=== PATIENT | male | born 1960 | race Caucasian/White ===

== ENCOUNTER → 2020-10-10 08:19 | Outpatient (BNVA) | payer OTHER, SELFPAY | PROVIDERS: PCP Family Medicine; Referring Provider Family Medicine; Visit Provider Anesthesiology Pain Medicine | DX: M54.41 Lumbago with sciatica, right side (principal); M54.16 Radiculopathy, lumbar region; M47.816 Spondylosis without myelopathy or radiculopathy, lumbar region; R10.2 Pelvic and perineal pain; M53.3 Sacrococcygeal disorders, not elsewhere classified; M46.1 Sacroiliitis, not elsewhere classified; M54.9 Dorsalgia, unspecified; Z79.891 Long term (current) use of opiate analgesic | CPT/HCPCS: 99204; G0260; J1030; J3490 ==

== ENCOUNTER → 2020-10-24 08:19 | Outpatient (BNVA) | payer OTHER, SELFPAY | PROVIDERS: PCP Family Medicine; Visit Provider Anesthesiology Pain Medicine | DX: M79.18 Myalgia, other site (principal); M54.9 Dorsalgia, unspecified; M54.16 Radiculopathy, lumbar region; M47.816 Spondylosis without myelopathy or radiculopathy, lumbar region; M53.3 Sacrococcygeal disorders, not elsewhere classified | CPT/HCPCS: 20553; 99214; J1030; J3490 ==

== ENCOUNTER 2020-11-02 15:23 | Outpatient (CLI) | payer OTHER, SELFPAY ==
--- NOTE | 2020-11-02 16:00 | MR_ITS ---
WS: [id number] MRI LUMBAR SPINE NONCONTRAST HISTORY: M54.16 - Radiculopathy, lumbar region COMPARISON: None available. TECHNIQUE: Sagittal and axial multisequence imaging is submitted. Disc osteophyte contacts the ventral cervical cord at C3-4. Mild straightening of the normal lumbar lordosis. No marrow edema or fracture. Mild disc desiccation L4-5 and L5-S1 without disc space narrowing. Conus terminates normally at L1. L1-L2: Normal. L2-L3: Normal. L3-L4: Very slight annular disc bulging and mild ligamentum flavum and facet arthritis. No disc conta ct on the nurse. L4-L5: Mild diffuse annular disc bulging and mild osteophytic ridging. Multiple annular fissures with in the posterior lateral disc. The disc bulging with small protrusions contacts the L4 nerve roots bi laterally. Only mild bilateral foraminal stenosis. L5-S1: Mild annular disc bulging. Moderate RIGHT foraminal disc protrusion contacting the RIGHT L5 ne rve root displacing the nerve root. There is moderate RIGHT foraminal stenosis. Mild LEFT foraminal s tenosis due to disc bulging. Small amount of fluid in the facet joints. Paravertebral soft tissues are normal. MR/MR lumbar spine wo con* [id number] IMPRESSION: 1. Moderate RIGHT foraminal stenosis at L5-S1 with a RIGHT foraminal disc prot rusion contacting the L5 nerve root. 2. Annular disc bulging at L4-5 with small protrusions and multiple annular fi ssures. Mild disc contact on the L4 nerve roots. Mild foraminal stenosis bilate rally. 3. No central stenosis.
== END 2020-11-02 15:24 | disposition home or self-care (01) ==
LOC: RADSHAW 15:26
PROVIDERS: PCP Family Medicine; Visit Provider Anesthesiology Pain Medicine
DX: M54.16 Radiculopathy, lumbar region (principal); M48.07 Spinal stenosis, lumbosacral region; M51.26 Other intervertebral disc displacement, lumbar region
CPT/HCPCS: 72148

== ENCOUNTER → 2020-11-21 09:14 | Outpatient (BNVA) | payer OTHER, SELFPAY | PROVIDERS: PCP Family Medicine; Visit Provider Anesthesiology Pain Medicine | DX: G89.29 Other chronic pain (principal); M47.816 Spondylosis without myelopathy or radiculopathy, lumbar region; M54.16 Radiculopathy, lumbar region; M54.9 Dorsalgia, unspecified; M53.3 Sacrococcygeal disorders, not elsewhere classified | CPT/HCPCS: 99214 ==

== ENCOUNTER 2020-12-18 11:49 | Outpatient (CLI) | payer OTHER, SELFPAY ==
--- NOTE | 2020-12-18 11:54 | XRR_ITS ---
PROCEDURE INFORMATION: Exam: XR Lumbosacral Spine Exam date and time: 12/18/2020 11:54 AM Age: 60 years old Clinical indication: Low back pain; Patient HX: PT stated he is experiencing pain in his lower back. No known injuries; Additional info: M47.816 - spondylosis without myelopathy or radiculopathy. . . TECHNIQUE: Imaging protocol: XR of the lumbosacral spine. Views: 2 or 3 views. COMPARISON: MR lumbar spine wo con* [id number] 11/02/2020 4:07 PM FINDINGS: Bones/joints: No fracture or other acute abnormalities are seen in the lumbar spine. [id number]-[id number] chronic degenerative changes are present predominantly at the L5-S1 level with disc space narrowing and small osteophyte formation. There is no malalignment. Soft tissues: Unremarkable. XR/XR lumbar spine f/e only [id number] IMPRESSION: [id number] DJD. No acute abnormality or malalignment is seen.
== END 2020-12-18 11:50 | disposition home or self-care (01) ==
LOC: RAD 11:50
PROVIDERS: PCP Family Medicine; Visit Provider Anesthesiology Pain Medicine
DX: M47.816 Spondylosis without myelopathy or radiculopathy, lumbar region (principal)
CPT/HCPCS: 72120

== ENCOUNTER 2020-12-19 10:08 | Outpatient (CLI) | payer OTHER, SELFPAY ==
--- NOTE | 2020-12-19 10:13 | XRR_ITS ---
PROCEDURE INFORMATION: Exam: XR Pelvis Exam date and time: 12/19/2020 10:13 AM Age: 60 years old Clinical indication: Pelvic pain; Patient HX: Lower hip and back pain; Additional info: R10.2 - pelvic and perineal pain TECHNIQUE: Imaging protocol: XR pelvis. Views: 1 or 2 view. COMPARISON: CT abdomen pelvis w con* [id number] 03/22/2014 4:47 PM FINDINGS: Bones/joints: Unremarkable. No acute fracture. Soft tissues: Unremarkable. XR/XR pelvis 1-2V* [id number] IMPRESSION: No significant abnormality.
== END 2020-12-19 10:09 ==
LOC: RADWPI 10:09
PROVIDERS: PCP Family Medicine; Visit Provider Anesthesiology Pain Medicine
DX: G89.29 Other chronic pain (principal); M54.41 Lumbago with sciatica, right side; M54.16 Radiculopathy, lumbar region; M47.816 Spondylosis without myelopathy or radiculopathy, lumbar region; M53.3 Sacrococcygeal disorders, not elsewhere classified
CPT/HCPCS: 72170; 99214

== ENCOUNTER → 2020-12-27 13:12 | Outpatient (BNVA) | payer OTHER, SELFPAY | PROVIDERS: PCP Family Medicine; Visit Provider Anesthesiology Pain Medicine | DX: M47.816 Spondylosis without myelopathy or radiculopathy, lumbar region (principal) | CPT/HCPCS: 64493; 64494; 64495; J3490 ==

== ENCOUNTER → 2021-01-10 10:35 | Outpatient (BNVA) | payer OTHER, SELFPAY | PROVIDERS: PCP Family Medicine; Visit Provider Anesthesiology Pain Medicine | DX: M54.16 Radiculopathy, lumbar region (principal); M47.816 Spondylosis without myelopathy or radiculopathy, lumbar region; M53.3 Sacrococcygeal disorders, not elsewhere classified | CPT/HCPCS: 99214 ==

== ENCOUNTER 2024-07-22 18:10 | Inpatient (IN) | payer OTHER, SELFPAY ==
--- NOTE | 2024-07-22 18:16 | ECG_ITS ---
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 Measurements Intervals [place] Rate: 66 P: 60 [place]: 176 QRS: 74 QRSD: 150 T: 27 QT: 414 QTc: 436 Interpretive Statements SINUS RHYTHM RIGHT BUNDLE BRANCH BLOCK [120+ ms QRS DURATION, UPRIGHT V1, 40+ ms S IN I/aVL/V4/V5/V6] No previous ECG available for comparison Electronically Signed On 07-23-2024 19:05:03 CDT by Mayo Sotelo M.D. [email or web address] [id number]
[2024-07-22 18:18] VITALS: BP 133/82; PULSE 68; RESP 17; TEMP 36.7; O2SAT 98; BMI 29.7
--- NOTE | 2024-07-22 18:26 | XRR_ITS ---
PROCEDURE INFORMATION: Exam: XR Chest Exam date and time: 07/22/2024 6:28 PM Age: 64 years old Clinical indication: Chest wall pain; Additional info: Chest pain TECHNIQUE: Imaging protocol: Radiologic exam of the chest. Views: 1 view. COMPARISON: No relevant prior studies available. FINDINGS: Lungs: No focal consolidation. Pleural spaces: No evidence of pneumothorax. No evidence of pleural effusion. Heart/Mediastinum: Cardiomediastinal silhouette is within normal limits. Bones/joints: No evidence of acute osseous abnormality. XR/XR chest 1V portable [id number] IMPRESSION: 1. No acute cardiopulmonary abnormality.
[2024-07-22 19:29] LABS: Basophils % 0.4 %; Eosinophils % 0.4 %; Hematocrit 45.1 % (37-53); Lymphocytes # 2.2 10^3/uL (0.8-4.8); Lymphocytes % 21.7 %; Mean Corpuscular HGB Conc 34.8 g/dL (30-55); Mean Corpuscular Volume 89.1 fl (82-101); Mean Platelet Volume 10.4 fL (7.4-10.4); Monocytes # 0.8 10^3/uL (0.2-0.9); Monocytes % 7.5 %; Neutrophils # 7.01 10^3/uL (1.8-7.7); Neutrophils % 69.7 %; Nucleated Red Blood Cells % 0 %; Platelet Count 210 10^3/cmm (157-399); Red Blood Count 5.06 10^6/uL (3.85-5.65); Red Cell Distribution Width 12.8 % (12.1-15.1); White Blood Count 10.07 10^3/uL (3.29-11.43)
[2024-07-22 19:45] LABS: INR 0.95 (0.8-1.2)
--- NOTE | 2024-07-22 19:56 | ECG_ITS ---
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 Measurements Intervals [place] Rate: 62 P: 15 [place]: 185 QRS: 23 QRSD: 145 T: 25 QT: 414 QTc: 422 Interpretive Statements SINUS RHYTHM RIGHT BUNDLE BRANCH BLOCK [120+ ms QRS DURATION, UPRIGHT V1, 40+ ms S IN I/aVL/V4/V5/V6] Compared to ECG 07/22/2024 18:16:57 No significant changes Electronically Signed On 07-23-2024 19:04:54 CDT by Mayo Sotelo M.D. [email or web address] [id number]
[2024-07-22 19:59] LABS: Troponin(5th) Baseline 255 ng/L (0-15)
[2024-07-22] MEDS: aspirin 81 mg Chew Tablet 324 MG PO (20:16)
[2024-07-22 20:19] VITALS: BP 122/78; PULSE 69; RESP 18; O2SAT 97
--- NOTE | 2024-07-22 20:28 | ECG_ITS ---
[facility] Date: 2024-07-22 Pat Name: Chadwick Dailey Department: Room: Gender: Male Systems Lead: : 1960 Requested By: Renan Bah Order Number: [id number] Jose C MD: Mayo Sotelo M.D. Measurements Intervals [place] Rate: 60 P: 38 [place]: 188 QRS: 33 QRSD: 141 T: 28 QT: 401 QTc: 403 Interpretive Statements SINUS RHYTHM RIGHT BUNDLE BRANCH BLOCK [120+ ms QRS DURATION, UPRIGHT V1, 40+ ms S IN I/aVL/V4/V5/V6] Compared to ECG 07/22/2024 19:56:03 No significant changes Electronically Signed On 07-23-2024 19:19:45 CDT by Mayo Sotelo M.D. [id number] [id number]
--- NOTE | 2024-07-22 20:36 | ED_ITS ---
HPI - Chest Pain 2 General: Chief Complaint: Chest Pain Stated Complaint: doc sent said pt had heart attack Time Seen by Provider: 07/22/24 19:27 History of Present Illness: This patient is a 64-year-old white male who presents to the emergency department stating that he had chest pain for quite some time on Friday while he was doing work at home. He felt somewhat lightheaded. [facility]. They did an EKG which they told him was that abnormal. They did a chest x-ray and also some blood work. They called him Phylicia back today and told him his troponin was elevated and that he should come to the emergency department. He is not having any chest pain at this time. He does have some mild shortness of breath which she has had for the past 4 to 5 days. Does get chest pain with exertion like when he is walking his dogs. His past medical history includes pulmonary emboli 20 years ago. He also has obstructive sleep apnea, hypertension and gout. Associated symptoms: Reports dyspnea Related Data Home Medications ?Medication ?Instructions ?Recorded ?Confirmed amlodipine 10 mg tablet 10 mg PO DAILY 10/10/2006/01 bupropion HCl 300 mg 24 hr tablet, 300 mg PO QAM 10/1001/10/21 extended release hydrochlorothiazide 25 mg tablet 12.5 mg PO DAILY 06/0101/10/21 indomethacin 50 mg capsule 50 mg PO TID 10/10/2001/10 naproxen 500 mg tablet 500 mg PO BID 10/10/2001/10 paroxetine HCl 40 mg tablet See Rx Instructions PO THALIA LY 10/10/20 01/10/21 probenecid 500 mg tablet 500 mg PO ONCE 10/10/2006/01 Previous Rx's ?Medication ?Instructions ?Recorded gabapentin 300 mg capsule 300 mg PO TID pain #90 caps 10/24/20 Allergies Allergy/AdvReac Type Severity Reaction Status Date / Time Penicillins Allergy rash Verified 01/10/21 11:22 Review of Systems 2 General: Reports: 10 or more systems reviewed and unremarkable except in HPI and below Card: Reports: chest pain Resp: Reports: dyspnea PFSH ED 2 PFSH: Family History Mother Cancer LUNG Social History Second hand smoke exposure: No Alcohol intake: never Physical Exam 2 Const: COMMON NORMALS: no acute distress, patient oriented x3 and no limitations GENERAL APPEARANCE: cooperative and comfortable HENMT: COMMON NORMALS: normocephalic, atraumatic, Normal nasal mucous membranes and turbinates present, moist oral mucous membranes and oropharynx normal HEAD & SCALP: normal to inspection, normocephalic and atraumatic F EVANGELINA & SINUS: normal facial exam NOSE: Normal nasal mucous membranes and turbinates present Eye: COMMON NORMALS: Equal, round and reactive pupils present, EOMs intact bilaterally and conjunctivae normal GENERAL EYE: appearance normal, both eyes and all related structures CONJUNCTIVA: Yes conjunctivae normal PUPIL: Yes Equal, round and reactive pupils present Neck/C-Spine: COMMON NORMALS: supple and no JVD Chest: COMMONS NORMALS: normal inspection of the chest Resp: COMMON NORMALS: normal respiratory effort and clear to auscultation bilaterally AUSCULTATION: clear to auscultation bilaterally Cardio: COMMON NORMALS: no JVD, regular rate, regular rhythm, No gallops present (Cardio), No murmurs present (Cardio) and No rub (Cardio) RATE: r egular rate RHYTHM: regular rhythm GI: COMMON NORMALS: Normal to inspection, nondistended, normoactive bowel sounds present, Soft to palpation and non-tender AUSCULTATION: Yes normoactive bowel sounds PALPATION: Yes Soft to palpation : COMMON NORMALS: Yes no CVA tenderness BLADDER/KIDNEY EXAM: Yes no CVA tenderness Back/Pelvis: COMMON NORMALS: no CVA tenderness and thoracic and lumbar spine normal to inspection Extremity: COMMON NORMALS: normal to inspection Neuro: COMMON NORMALS: patient oriented x3 and CN's II-XII intact bilaterally Psych: COMMON NORMALS: mental status grossly normal, Normal thought process present and cooperative THOUGHT PROCESS: Normal thought process present Skin: COMMON NORMALS: no rashes or lesions noted, turgor normal and no jaundice GENERAL SKIN EXAM: no rashes or lesions noted and turgor normal Course 2 Vital Signs: Vital signs: Vital Signs Temperature 98.1 F 07/22/24 18:18 Pulse Rate 69 07/22/24 20:19 Respiratory Rate 18 07/22/24 20:19 Blood Pressure 122/78 07/22/24 20:19 Pulse Oximetry 97 07/22/24 20:19 Oxygen Delivery Me thod Room Air 07/22/24 20:19 MDM - Chest Pain Medical Decision Making EKG revealed normal sinus rhythm, right bundle branch block. No ST segment elevation or depression. Chest x-ray did not reveal any cardiomegaly. No pleural effusions. CBC was normal. Troponin 255. D-dimer 0.30. I did contact Dr. Owens, hospitalist for admission. He has accepted the patient. He would like me to contact the strategies analyst. I did discuss the case with Dr. Chavez, strategies analyst. He would like the patient on heparin. Also recommended a statin, beta-lebron and n.p.o. after midnight. All of this was discussed with the patient. Patient will be admitted shortly. He is stable and asymptomatic. Lab Data 07/22/24 19:10 07/22/24 19:10 Radiology Impressions Chest X-Ray 07/22/24 18:26 IMPRESSION: 1. No acute cardiopulmonary abnormality. Laboratory Results WBC 10.07 10^3/uL (3.29-11.43) 07/22/24 19:10 RBC 5.06 10^6/uL (3.85-5.65) 07/22/24 19:10 Hgb 15.70 g/dL (11.27-16.99) 07/22/24 19:10 Hct 45.1 % (37-53) 07/22/24 19:10 MCV 89.1 fl (82-101) 07/22/24 19:10 MCH 31.0 pg (27-33) 07/22/24 19:10 MCHC 34.8 g/dL (30-55) 07/22/24 19:10 RDW 12.8 % (12.1-15.1) 07/22/24 19:10 Plt Count 210 10^3/cmm (157-399) 07/22/24 19:10 MPV 10.4 fL (7.4-10.4) 07/22/24 19:10 Neut % (Auto) 69.7 % 07/22/24 19:10 Lymph % (Auto) 21.7 % 07/22/24 19:10 [place] % (Auto) 7.5 % 07/22/24 19:10 Eos % (Auto) 0.4 % 07/22/24 19:10 Baso % (Auto) 0.4 % 07/22/24 19:10 Neut # (Auto) 7.01 10^3/uL (1.8-7.7) 07/22/24 19:10 Lymph # (Auto) 2.2 10^3/uL (0.8-4.8) 07/22/24 19:10 [place] # (Auto) 0.8 10^3/uL (0.2-0.9) 07/22/24 19:10 Eos # (Auto) 0.0 10^3/uL (0.0-0.8) 07/22/24 19:10 Baso # (Auto) 0.0 10^3/uL (0.0-0.1) 07/22/24 19:10 Nucleated RBC % (auto) 0 % 07/22/24 19:10 Nucleated RBCs # 0.0 /100WBC 07/22/24 19:10 PT 13.40 SECONDS (12.1-14.9) 07/22/24 19:10 INR 0.95 (0.8-1.2) 07/22/24 19:10 D-Dimer 0.30 ug/mLFEU (0-0.59) 07/22/24 19:10 Troponin T Baseline 255 ng/L (0-15) H* 07/22/24 19:10 All radiology interpretation(s) finalized by discharge Discharge Plan Discharge Condition: Stable Prescriptions: No Action indomethacin 50 mg capsule 50 mg PO TID Rx Instructions: administer with food or milk probenecid 500 mg tablet 500 mg PO ONCE paroxetine HCl 40 mg tablet See Rx Instructions PO DAILY Rx Instructions: 1.5 PO daily; naproxen 500 mg tablet 500 mg PO BID hydrochlorothiazide 25 mg tablet 12.5 mg PO DAILY bupropion HCl 300 mg tablet extended release 24 hr 300 mg PO QAM amlodipine 10 mg tablet 10 mg PO DAILY gabapentin 300 mg capsule 300 mg PO TID Qty: 90 0RF Referrals: Lyssa Mora MD [Primary Care Provider] - Print Language: Korean Coding Level of Care Code ED 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
[2024-07-22 20:49] LABS: Alanine Aminotransferase 54 U/L (0-41); Albumin Level 4.7 g/dL (3.5-5.2); Alkaline Phosphatase 140 U/L (40-130); Aspartate Amino Transferase 38 U/L (0-40); Blood Urea Nitrogen 16 mg/dL (8-23); Calcium 9.8 mg/dL (8.5-10.5); Carbon Dioxide 25 mmol/L (22-29); Chloride 105 mmol/L (98-107); Creatinine Clr Calc Pharmacy 79.7933; Glucose 130 mg/dL (65-115); NT Pro B Type Natriuretic Pept 173 pg/mL (0-125); Osmolality Calculated 297 mOsm/kg (285-295); Sodium 142 mmol/L (136-145); Total Bilirubin 0.5 mg/dL (0.15-1.2); Total Protein 7.7 g/dL (6.6-8.7)
[2024-07-22] MEDS: heparin 5,000 unit/mL INJ 1 mL IVP (20:56)
[2024-07-22] MEDS: heparin drip 25,000 UNIT/500 ML PREMIX 44.45 UNIT IV (21:00)
[2024-07-22 21:40] LABS: Troponin 5 2HR Delta 2.3 ABS# (0-10)
--- NOTE | 2024-07-22 21:44 | PC.NURSE ---
Correct dose of heparin drip was verified by LUCIANA Luther and LUCIANA Frye to have starting rate run at 25ml/hr. This nurse charted an error of running heparin drip at 25 units/kg/hr instead of the correct documentation of 25 ml/hr. This was corrected in the MAR. Drip was also verified to be running at the correct drip at bedside with LUCIANA Luther.
[2024-07-22 21:52] LABS: Troponin 5 2HR 257.3 ng/L (0-15)
--- NOTE | 2024-07-22 22:32 | PM.HP ---
Providers/Chief Complaint Admitting Physician: Marilyn Owens MD Primary Care Provider: Lyssa Mora MD Chief Complaint: doc sent said pt had heart attack History of Present Illness Chadwick Dailey is a 64 year old male history of hypertension, physically very active, without any past medical history of coronary disease PR or CHF, non-smoker nonalcoholic, remote history of pulmonary embolism(20 years ago) off anticoagulating agent presented after [facility] called him regarding abnormal labs. Patient has been experiencing chest pain for the last 4 to 5 days on Friday and Friday his chest pain was worse she was describing it as pressure-like sensation radiating towards his neck, associated with shortness of breath but not nausea vomiting or diaphoresis, any kind of exertion would make it worse, rest helps to ease the pain. At [place] [facility] EKG was done along troponins and blood work, troponin came back high he was asked to come to the ER for further evaluation. Today he was doing his yard work 1 week clinic called him. Patient has received loading dose of aspirin, he is on heparin drip right now currently chest pain-free, ruled in for non-STEMI troponin above 200, cardiology consulted and notified D-dimer unremarkable to warrant thromboembolic screening Patient is stating that he had an angiogram 20 years ago in [place] when he was diagnosed with pulmonary embolism. No etiology was found there is no family history of hypercoagulable state/blood disorder. He is enjoying healthy lifestyle. Patient follows up with Dr. Lopez for chronic back pain, no acute decompensation, takes probenecid for gout as well on daily basis but has not taken in last few days. No active gout flare. Review of Systems Const: Denies: fever(s) Eyes: Denies: change in vision ENMT: Denies: throat pain Card: Reports: chest pain Resp: Denies: dyspnea GI: Denies: abdominal pain : Denies: flank pain Musc: Denies: neck pain Skin/Breast: Denies: rash Medications/Allergies Home Medications ?Medication ?Instructions ?Recorded ?Confirmed ?Last Taken ?Type amlodipine 10 mg tablet 10 mg PO DAILY 10/10/20 01/10/21 Unknown History bupropion HCl 300 mg 24 hr tablet, 300 mg PO QAM 10/10/20 01/10/21 Unknown History extended release hydrochlorothiazide 25 mg tablet 12.5 mg PO DAILY 10/10/20 01/10/21 Unknown History indomethacin 50 mg capsule 50 mg PO TID 10/10/20 01/10/21 Unknown History naproxen 500 mg tablet 500 mg PO BID 10/10/20 01/10/21 Unknown History paroxetine HCl 40 mg tablet See Rx Instructions PO DAILY 10/10/20 01/10/21 Unknown History probenecid 500 mg tablet 500 mg PO ONCE 10/10/20 01/10/21 Unknown History gabapentin 300 mg capsule 300 mg PO TID pain #90 caps 10/24/20 01/10/21 Unknown Rx Allergies Allergy/AdvReac Type Severity Reaction Status Date / Time Penicillins Allergy rash Verified 01/10/21 11:22 PFSH Acute PFSH: Medical History Facet arthritis, degenerative, lumbar spine Lumbar radiculopathy Sacroiliac dysfunction Depression Hypertension Gout PTSD (post-traumatic stress disorder) Sleep apnea Family History Mother Cancer LUNG Social History Second hand smoke exposure: No Alcohol intake: never Vitals/I&O/Wt Last Vital Signs Temp 98.1 F 07/22/24 18:18 Pulse 69 07/22/24 20:19 Resp 18 07/22/24 20:19 BP 122/78 07/22/24 20:19 Pulse Ox 97 07/22/24 20:19 O2 Del Method Room Air 07/22/24 20:19 07/22/24 07/22/24 07/22/24 06:59 14:59 22:59 Intake Total 31.856 / 31.856 Balance 31.856 / 31.856 Weight last 48 hrs Weight 88.904 kg Physical Exam Narrative: Euvolemic Pleasant and cooperative Family at the bedside Pleasant and cooperative Healthy-appearing male GCS 15 S1, S2 No active chest pain S1, S2 On room air No audible stridor or wheezing Lower extremity no edema Abdomen soft Data 07/22/24 19:10 07/22/24 19:10 A&P Assessment and plan (1) Non-ST elevation (NSTEMI) myocardial infarction: Plan Non-STEMI Requested echo Start ACS protocol He has received loading dose of aspirin, I will give him a loading dose of Plavix start high intensity statins along lisinopril No active chest pain Currently on heparin drip Patient will need an angiogram D-dimer unremarkable to warrant thromboembolic screening EKG showing right bundle branch block related changes Hypertension: Optimize antibiotics regimen, added lisinopril, continue amlodipine, may resume hydrochlorothiazide if systolic blood pressure stays above 130 mmHg History of gout: No acute decompensation: Hold probenecid for now Chronic back pain: No acute decompensation Patient is full code Cardiac diet n.p.o. after midnight DVT prophylaxis covered with heparin drip Patient is a non-smoker nonalcoholic and a very active healthy lifestyle Remote history of pulmonary embolism off anticoagulating agent PDMP PDMP Reviewed: Not Reviewed Attestations Medical Necessity Statement*: Anticipating more than 2 midnights in the hospital for management evaluation of non-STEMI, will need an angiogram Diagnoses Non-ST elevation (NSTEMI) myocardial infarction I21.4
--- NOTE | 2024-07-22 22:34 | USCV_ITS ---
Chadwick Dailey Age: 64 Gender: M : 1960 Exam Date: 07/22/2024 23:14 Ordering Phys: Marilyn Owens MD Technologist: GABY [place] [facility] [place]: UA BP: 142 / 78 HR: 58 Rhythm: Sinus Technical Quality: Adequate MEASUREMENTS (Male / Female) Normal Values 2D ECHO LV Diastolic Diameter PLAX 5.4 cm 4.2 - 5.9 / 3.9 - 5.3 cm IVS Diastolic Thickness 1.0 cm 0.6 - 1.0 / 0.6 - 0.9 cm IVS Systolic Thickness 1.7 cm LVPW Diastolic Thickness 1.0 cm 0.6 - 1.0 / 0.6 - 0.9 cm LVPW Systolic Thickness 1.7 cm LVOT Diameter 2.1 cm LV Ejection Fraction 2D Teich 72.2 % LV Ejection Fraction MOD 4C 58.0 % LV Ejection Fraction MOD 2C 60.7 % LV Ejection Fraction 2C AL 60.6 % LA Diameter 3.0 cm Aorta at Sinotubular Diameter 3.2 cm IVC Diameter 1.0 cm M-MODE LA Ao Ratio MM 1.1 AV Cusp Separation MM 2.3 cm DOPPLER AV Peak Velocity 169.0 cm/s LVOT Peak Velocity 106.0 cm/s AV Area Cont Eq vti 2.5 cm squared AV Area Cont Eq pk 2.2 cm squared MV Peak Velocity 82.0 cm/s MV Area PHT 2.7 cm squared Mitral E to A Ratio 0.9 TR Peak Velocity 242.0 cm/s TR Peak Gradient 23.4 mmHg TV Peak E Velocity 34.0 cm/s PV Peak Velocity 98.0 cm/s FINDINGS Left Ventricle Left ventricle is normal in size. LV systolic function is normal with EF of 55 to 60%. No regional wall motion abnormalities are seen. Grade 1 diastolic dysfunction. Right Ventricle Normal in size and function Right Atrium Normal in size. Echogenic structure noted in the right atrium. Likely eustachian valve. Left Atrium Normal in size Mitral Valve Structurally normal mitral valve. Mild mitral regurgitation. Aortic Valve Structurally normal aortic valve. No significant stenosis or regurgitation. Tricuspid Valve Inadequate TR jet to calculate RVSP Pulmonic Valve Not well visualized Pericardium Normal Aorta Normal in size IVC Appears to be normal CONCLUSIONS LV systolic function is normal with EF of 55-60% Grade 1 diastolic dysfunction Echogenic structure noted in the right atrium. Likely eustachian valve. Mild mitral regurgitation. Mayo Sotelo MD (Electronically Signed) Final Date: 23 July 2024 09:13 S
[2024-07-22 22:36] VITALS: BP 142/78; PULSE 87; RESP 18; O2SAT 93
[2024-07-22 23:00] VITALS: BP 153/82; PULSE 68; RESP 16; TEMP 36.8; O2SAT 94
[2024-07-22 23:41] LABS: Estmated Average Glucose 126
[2024-07-22 23:55] LABS: Thyroid Stimulating Hormone 1.46 uIU/mL (0.27-4.20); Vitamin B12 303 pg/mL (232-1245)
[2024-07-22] MEDS: clopidogrel 300 mg Tablet PO (23:56)
[2024-07-22] MEDS: lisinopril 10 mg Tablet PO (23:57)
--- NOTE | 2024-07-23 00:26 | ECG_ITS ---
[facility] Date: 2024-[facility]23 Pat Name: Chadwick Dailey Department: Room: 105 Gender: Male Rn Telehealth: : 1960 Requested By: Renan Bah Order Number: [id number] Jose C MD: Mayo Sotelo M.D. Measurements Intervals [place] Rate: 56 P: -8 [place]: 192 QRS: 49 QRSD: 145 T: 32 QT: 425 QTc: 414 Interpretive Statements SINUS BRADYCARDIA RIGHT BUNDLE BRANCH BLOCK [120+ ms QRS DURATION, UPRIGHT V1, 40+ ms S IN I/aVL/V4/V5/V6] Compared to ECG 07/22/2024 20:28:38 Sinus rhythm no longer present Electronically Signed On 07-23-2024 19:19:36 CDT by Mayo Sotelo M.D. [email or web address] [id number]
[2024-07-23 01:11] LABS: Troponin 5 6HR 278.9 ng/L (0-15); Troponin 5 6HR Delta 23.9 ng/L (0-12)
[2024-07-23 04:00] VITALS: BP 110/63; PULSE 60; RESP 16; TEMP 37.1; O2SAT 94
[2024-07-23 04:00] LABS: Basophils % 0.4 %; Eosinophils # 0.1 10^3/uL (0.0-0.8); Eosinophils % 0.9 %; Hematocrit 42.3 % (37-53); Lymphocytes # 3.4 10^3/uL (0.8-4.8); Lymphocytes % 32.3 %; Mean Corpuscular HGB Conc 34.5 g/dL (30-55); Mean Corpuscular Hemoglobin 31.1 pg (27-33); Mean Platelet Volume 10.5 fL (7.4-10.4); Monocytes # 0.7 10^3/uL (0.2-0.9); Monocytes % 7.1 %; Neutrophils # 6.11 10^3/uL (1.8-7.7); Nucleated Red Blood Cells % 0 %; Platelet Count 208 10^3/cmm (157-399); Red Cell Distribution Width 12.8 % (12.1-15.1); White Blood Count 10.36 10^3/uL (3.29-11.43)
[2024-07-23 04:13] LABS: Partial Thromboplastin Time 67.5 SECONDS (23.9-36.7)
[2024-07-23 04:19] LABS: Anion Gap 15.9 (5-19); Blood Urea Nitrogen 17 mg/dL (8-23); Calcium 9.1 mg/dL (8.5-10.5); Carbon Dioxide 23 mmol/L (22-29); Chloride 104 mmol/L (98-107); Creatinine Clr Calc Pharmacy 89.5625; Glomerular Filtration Rate 84.7 mL/min (90-130); Glucose 122 mg/dL (65-115); Magnesium 2.1 mg/dL (1.7-2.3); Osmolality Calculated 291 mOsm/kg (285-295); Potassium 3.9 mmol/L (3.5-5.1); Sodium 139 mmol/L (136-145)
[2024-07-23 06:00] VITALS: PULSE 58
--- NOTE | 2024-07-23 07:48 | P.PN_ITS ---
Subjective 2 Subjective: Patient reports chest pain is resolved this morning. He is n.p.o. pending cardiology evaluation. Notes remote history of cardiac catheterization around the time of his pulmonary embolisms 20 years ago. Requires about echo results pending. Discussed plan of care. Medications: Reviewed: Yes Vitals/I&O/Wt Last Vital Signs Temp 98.7 F 07/23/24 04:00 Pulse 58 L 07/23/24 06:00 Resp 16 07/23/24 04:00 BP 110/63 07/23/24 04:00 Pulse Ox 94 07/23/24 04:00 O2 Del Method Room Air 07/23/24 04:00 07/22/24 07/23/24 07/23/24 22:59 06:59 14:59 Intake Total 31.856 / 31.856 165 / 196.856 Balance 31.856 / 31.856 165 / 196.856 Weight last 48 hrs Weight 90.718 kg Weight 90.855 kg Weight 88.904 kg Physical Exam 2 Narrative: General: Patient is awake and alert. Pleasant. Conversational. Head: Normocephalic. Atraumatic. EOM intact. Neck: No JVD. Cardiovascular: RRR. No gallops. No murmurs. Lungs: Clear to auscultation, no use of accessory muscles, no crackles or wheezes. Skin: No jaundice. No rashes. Abdomen: Normal bowel sounds, abdomen soft and nontender. Extremities: No cyanosis or clubbing. Musculoskeletal: No swollen or erythematous joints. Neurological: Moves all 4 extremities. No myoclonus. Data 07/23/24 03:08 07/23/24 03:08 A&P Assessment and plan (1) Non-ST elevation (NSTEMI) myocardial infarction: Plan Non-STEMI: Follow-up transthoracic echocardiogram Continue ACS protocol Continue DAPT Continue statin Continue beta-lebron Continue heparin drip Continuous telemetry monitoring N.p.o. until cardiology evaluates Hypertension: Monitor blood pressure Continue lisinopril, Norvasc History of gout: Hold probenecid Chronic back pain: No acute decompensation History of pulmonary embolism: Remote history DVT prophylaxis: Heparin drip PDMP PDMP Reviewed: Not Reviewed Attestations 2 Medical Necessity Statement*: Patient requires ongoing hospitalization for further workup and treatment of NSTEMI. Coding Level of Care Code Acute Code for Chg Fwd Diagnoses Non-ST elevation (NSTEMI) myocardial infarction I21.4
[2024-07-23 07:56] VITALS: BP 110/63; PULSE 62; RESP 18; TEMP 36.6; O2SAT 93
[2024-07-23 09:31] LABS: Partial Thromboplastin Time 64.5 SECONDS (23.9-36.7)
[2024-07-23] MEDS: atorvastatin 40 mg Tablet 80 MG PO (09:47)
[2024-07-23] MEDS: aspirin 81 mg EC Tablet PO (09:47)
[2024-07-23] MEDS: clopidogrel 75 mg Tablet PO (09:47)
[2024-07-23] MEDS: amlodipine 10 mg Tablet 5 MG PO ×2 (09:48→21:08)
--- NOTE | 2024-07-23 10:45 | P.CONIM_ITS ---
<Statement entered by Marilyn Chavez MD - 07/24/24 18:08> Patient was evaluated and cared for in conjunction with an advanced practice practitioner. I personally examined the patient and reviewed the chart and all pertinent data including imaging, telemetry, and laboratory results. I discussed the patient in detail with the advanced practice practitioner. Please see their note for complete H&P testing result and agreed upon plan of care for the patient. 64-year-old male past medical history significant as below presented with chest pain worsening of symptom with shortness of breath radiating to jaw and neck, he was ruled in for non-ST elevation [place]. Currently chest pain-free and stable but according to patient if he does minor exertion it brings on the symptoms. GENERAL: Patient is alert, awake and oriented x3. HEART: Regular S1 and S2. No murmur, rub or gallop. LUNGS: Clear to auscultate bilaterally. CENTRAL NERVOUS SYSTEM: Grossly nonfocal. EXTREMITIES: Lower extremities with out edema bilaterally. Assessment and plan Non-ST elevation [place] Hypertension Hyperlipidemia Continue aspirin and statin beta-lebron Add isosorbide mononitrate Continue heparin as per ACS protocol Proceed with left heart cath. Patient has been explained all risk-benefit and alternative for the procedure he would like to proceed with it Providers/Reason For Consult 2 Consulting Physician/Specialty*: Marilyn Chavez MD Reason for Consult*: NSTEMI, chest pain Requesting Physician: Dr. Owens Attending Physician: Jatinder Stoll MD Primary Care Provider: Lyssa Moar MD History of Present Illness History of Present Illness This is a very pleasant 64-year-old gentleman who came into the emergency room last night due to history of chest pain. Patient states since Friday he has been having ongoing chest pain on exertion relieved with rest. He states this is a pressure that occurs across his whole chest. Does not radiate. No nausea or vomiting associated with this. He said [facility] and they sandhya some labs and his troponin was elevated and he was told to go to the emergency room. At the time of my exam he is chest pain-free. He has been placed on a heparin drip. Troponins were elevated at [phone]. He states that he does not have a significant cardiac history. He states in the past he had a left heart cath about 20 years ago that was negative. He states he was not having the same symptoms then as he is now. States he has a history of hypertension, hyperlipidemia and well-controlled with medications. He also has a history of a pulmonary embolism. D-dimer was negative here. Echo was done that showed normal ejection fraction 55 to 60% without regional wall motion abnormality seen. Currently he takes aspirin Plavix atorvastatin 80 mg, heparin drip, amlodipine 5 mg every 12. Creatinine normal at 2.5. EKG showed right bundle branch block without acute ST or T wave abnormalities. Review of Systems 2 Narrative: Consitutional: denies fever, chills, body aches, or changes in appetite, denies abnormal weight loss Eyes: Denies changes in vision Card: Denies chest pain, palpitations, irregular heart rhythm, edema, syncope, shortness of breath, orthopnea, leg pain with exertion Resp: Denies shortness of breath, denies hemoptysis, denies cough GI: denies abdominal pain, denies nausea or voimting, denies blood in stool : denies blood in urine, denies dysuria Musc: Denies extremity pain, denies limited range of motion or recent injury Skin: Denies rash, lesions, or wounds, denies changes to skin color Neuro: Denies nubmness in extremities, h/a, s/s of stroke Herrera: Denies easy bruiding/bleeding Medications/Allergies Home Medications ?Medication ?Instructions ?Recorded ?Confirmed ?Last Taken ?Type amlodipine 10 mg tablet 10 mg PO DAILY 10/10/2007/1007/21/24 History bupropion HCl 300 mg 24 hr tablet, 300 mg PO DAILY 06/0107/22/24 07/21/24 History extended release paroxetine HCl 40 mg tablet 80 mg PO DAILY 10/10/2007/21/24 History probenecid 500 mg tablet 500 mg PO ONCE PRN gout flar e up 10/10/20 07/22/24 3 Weeks Ago History ~07/01/24 atorvastatin 20 mg tablet 20 mg PO DAILY 07/22/2407/1007/21/24 History Allergies Allergy/AdvReac Type Severity Reaction Status Date / Time Penicillins Allergy rash Verified 01/10/21 11:22 Current Medications Generic Name Dose Route Start Last Admin Trade Name Freq PRN Reason Stop Dose Admin Amlodipine Besylate 5 mg 07/23/24 09:45 07/23/24 09:48 Amlodipine 10 Mg Tablet PO 5 mg Q12H BLANE Administration Aspirin 81 mg 07/23/24 09:00 07/23/24 09:47 Aspirin 81 Mg Ec Tablet PO 81 mg DAILY BLANE Administration Atorvastatin Calcium 80 mg 07/23/24 09:00 07/23/24 09:47 Atorvastatin 40 Mg Tablet PO 80 mg DAILY BLANE Administration Clopidogrel Bisulfate 75 mg 07/23/24 09:00 07/23/24 09:47 Clopidogrel 75 Mg Tablet PO 75 mg DAILY BLANE Administration Heparin Sodium/Sodium Chloride 25,000 unit in 500 mls @ 0 mls/hr 07/22/24 20:45 07/23/24 09:50 Heparin Drip IV 14.06 unit/kg/hr CONT BLANE 25 mls/hr Titration Protocol Per Protocol Senna/Docusate Sodium 2 tab 07/23/24 00:00 07/23/24 09:47 Sennosides-Docusate Tablet PO Not Given BID BLANE PFSH Acute 2 PFSH: Medical History Facet arthritis, degenerative, lumbar spine Lumbar radiculopathy Sacroiliac dysfunction Depression Hypertension Gout PTSD (post-traumatic stress disorder) Sleep apnea Family History Mother Cancer LUNG Social History Second hand smoke exposure: No Alcohol intake: never Vitals/I&O/Wt Last Vital Signs Temp 97.8 F 07/23/24 07:56 Pulse 62 07/23/24 07:56 Resp 18 07/23/24 07:56 BP 110/63 07/23/24 07:56 Pulse Ox 93 07/23/24 07:56 O2 Del Method Room Air 07/23/24 07:56 07/22/24 07/23/24 07/23/24 22:59 06:59 14:59 Intake Total 31.856 / 31.856 165 / 196.856 137.917 / 137.917 Balance 31.856 / 31.856 165 / 196.856 137.917 / 137.917 Weight last 48 hrs Weight 200 lb Weight 200 lb 4.8 oz Weight 196 lb Physical Exam 2 Narrative: General: No apparent distress, healthy appearing, well nourished HENMT: normoceophalic Neck: No carotid bruit bilaterally Muskuloskeletal: Full ROM Respiratory: Normal respiratory effort, clear to auscultation bilaterally throughout all lung paz, no use of accessory muscles Cardio: No JVD, regular rate, regular rhythm, S1 S2 normal, no murmurs, peripheral pulses 2+ radial palpated bilaterally GI: Normal to inspection, nondistended Extremities: Full ROM, normal, normal capillary refill, no cyanosis or edema Neuro: Alert and oriented x4, no focal motor deficits Psych: Affect normal, denies suicidal ideation, mental status grossly normal Skin: No rashes or lesions noted, no wounds Data 07/23/24 03:08 07/23/24 03:08 A&P Assessment and plan (1) Non-ST elevation (NSTEMI) myocardial infarction: (2) Unstable angina: (3) Hypercholesteremia: Plan Patient has classic symptoms of chest pain and NSTEMI. He will need a left heart cath. possible PCI. I discussed this with the patient, and he agrees to proceed. He is NPO at this time. Will plan on taking him this afternoon. Continue heparin drip, plavix, aspirin, and statin. Thank you, Dr. Owens, for allowing us to care for this very pleasant 64 year old gentleman. PDMP PDMP Reviewed: Not Reviewed Consult Attestations 2 Medical Necessity Statement: Deferred to primary. Coding Level of Care Code Acute Code for [facility] Diagnoses Non-ST elevation (NSTEMI) myocardial infarction I21.4 Unstable angina I20.0 Hypercholesteremia E78.00
[2024-07-23 12:00] VITALS: BP 116/75; PULSE 63; RESP 14; TEMP 36.7; O2SAT 93
[2024-07-23] MEDS: sodium chloride 0.9% 1,000 ML 50 ML IV (12:36)
[2024-07-23] MEDS: diphenhydrAMINE 50 mg Capsule PO (15:37)
[2024-07-23 16:00] VITALS: BP 125/74; PULSE 65; RESP 15; TEMP 36.6; O2SAT 96
[2024-07-23] MEDS: acetaminophen 500 mg Tablet PO (16:03)
--- NOTE | 2024-07-23 17:08 | PC.NURSE ---
to cardiac greenskeeper laborer at this time
--- NOTE | 2024-07-23 17:25 | W.PM.OPSUD ---
Surgery/Procedure H&P Update DATE OF PROCEDURE: July 23, 2024 DATE H&P PERFORMED: 07/23/24 H&P UPDATE INFORMATION: I have reviewed H&P completed within last 30 days, I have examined patient prior to procedure and No changes to prior documentation PREOP DIAGNOSIS: [id number] PA PATIENT REASSESSED PRIOR TO SEDATION, WITH NO CHANGE NOTED: Yes PHYSICAL EXAM: alert, oriented x 3, clear to auscultation bilaterally, regular rate & rhythm and operative site marked AIRWAY EVAL/ANESTHESIA PLAN: ASA II, Risks, benefits & alternatives of sedation and/or procedure discussed and Patient agrees to continue as planned
[2024-07-23 18:44] VITALS: BP 115/70; PULSE 69; RESP 17; TEMP 36.7; O2SAT 90
--- NOTE | 2024-07-23 18:47 | P.PCN_ITS ---
Procedure Note: Date of procedure: 07/23/24 Pre-procedure diagnosis: Non- STEMI Post-procedure diagnosis: same Procedure: Left heart cath Left main is normal LAD has calcified eccentric 90 to 99% stenosis, immediately after that diagonal branch comes out without any significant disease LCx has luminal irregularity without significant stenosis, obtuse marginal is a proximal 60% stenosis RCA: Has luminal irregularity without significant stenosis Due to tortuosity of the subclavian vessel LV gram was not performed Intervention: Single drug-eluting stent to proximal to mid LAD postdilated with noncompliant balloon. Jailed diagonal branch was then dilated with 2 oh balloon. Excellent angiographic result with FELIPE-3 flow was noted at the end of the case without any complication. Patient was loaded with 300 mg more of Plavix which she will equal to 600 mg total. Continue aspirin statin Plavix and beta-lebron. Echocardiogram will be obtained to assess LV function Possibly discharge tomorrow Coding Level of Care Code Acute Code for [facility]wsom[facility]
[2024-07-23] MEDS: sodium chloride 0.9% 1,000 ML 100 ML IV (19:06)
[2024-07-24 00:37] VITALS: BP 107/75; PULSE 64; RESP 15; TEMP 37; O2SAT 94
--- NOTE | 2024-07-24 01:22 | PC.NURSE ---
TR band Removal TR band was removed at 2345 with releasing air out of band every 15-30 minutes, 1-2mL at a time, slight soft bruising noted above site. no hematoma present.
[2024-07-24 05:02] VITALS: BP 111/73; PULSE 54; RESP 20; TEMP 36.8; O2SAT 92
[2024-07-24 05:20] LABS: Basophils # 0.1 10^3/uL (0.0-0.1); Basophils % 0.5 %; Eosinophils # 0.1 10^3/uL (0.0-0.8); Eosinophils % 0.9 %; Hematocrit 40.2 % (37-53); Lymphocytes # 2.9 10^3/uL (0.8-4.8); Lymphocytes % 29.7 %; Mean Corpuscular HGB Conc 33.8 g/dL (30-55); Mean Corpuscular Volume 91.6 fl (82-101); Mean Platelet Volume 10.6 fL (7.4-10.4); Monocytes # 0.9 10^3/uL (0.2-0.9); Monocytes % 9.2 %; Neutrophils # 5.78 10^3/uL (1.8-7.7); Neutrophils % 59.3 %; Nucleated Red Blood Cells % 0 %; Platelet Count 198 10^3/cmm (157-399); Red Blood Count 4.39 10^6/uL (3.85-5.65); Red Cell Distribution Width 13.2 % (12.1-15.1); White Blood Count 9.76 10^3/uL (3.29-11.43)
[2024-07-24 05:35] LABS: Blood Urea Nitrogen 19 mg/dL (8-23); Calcium 9.1 mg/dL (8.5-10.5); Carbon Dioxide 23 mmol/L (22-29); Chloride 108 mmol/L (98-107); Creatinine Clr Calc Pharmacy 73.5015; Glomerular Filtration Rate 67.2 mL/min (90-130); Glucose 127 mg/dL (65-115); Osmolality Calculated 296 mOsm/kg (285-295); Sodium 141 mmol/L (136-145)
[2024-07-24 06:00] VITALS: PULSE 54
--- NOTE | 2024-07-24 07:28 | PM.DCS ---
Discharge Providers Date of Admission: 07/22/24 20:52 Date of Discharge: July 24, 2024 Attending Provider at Admission: Marilyn Owens MD Attending Provider at Discharge: Jatinder Stoll MD Consults: Cardiology Primary Care Provider: Lyssa Mroa MD Diagnoses at Discharge Discharge Diagnosis (1) Non-ST elevation (NSTEMI) myocardial infarction: Status: Acute (2) Unstable angina: Status: Acute (3) Hypercholesteremia: Status: Acute Reason for Visit Reason for Visit: doc sent said pt had heart attack Hospital Course Hospital Course Chadwick Dailey is a very pleasant 64-year-old male with a past medical history significant for hypertension and pulmonary embolism who presented with elevated troponin after being checked for chest pain, found to have NSTEMI with coronary artery disease. He was treated with acute coronary syndrome protocol. Cardiology consulted and enumerate cardiac catheterization revealing culprit lesion in the LAD. He underwent PCI with PATRICA stent placement. He was started on goal-directed medical therapy for coronary artery disease. His hemodynamics would not tolerate initiation of beta lebron treatment due to bradycardia. His postprocedure course was uncomplicated. Patient discharging to home in stable condition. He will continue follow-up with his PCP as well as cardiology clinic for ongoing care. Physical Exam Narrative: General: Patient is awake and alert. Head: Normocephalic. Atraumatic. EOM intact. Neck: No JVD. Cardiovascular: RRR. No gallops. No murmurs. Lungs: Clear to auscultation, no use of accessory muscles, no crackles or wheezes. Skin: No jaundice. No rashes. Rectal: Rectal exam not performed since no symptoms indicated blood loss. Extremities: No cyanosis or clubbing. Musculoskeletal: No swollen or erythematous joints. Neurological: Moves all 4 extremities. No myoclonus. Discharge Data Studies Completed and Pending Completed Studies During Hospitalization Category Date Time Status XR chest 1V portable [id number] Stat Exams 07/22/24 18:26 Completed CV. echo complete* [id number] Routine Ultrasound 07/22/24 22:34 Completed Pending at discharge Category Date Time Status SECURITIES LENDING TRADER request for service Routine Exams 07/23/24 11:21 Ordered Radiology Impressions Chest X-Ray 07/22/24 18:26 IMPRESSION: 1. No acute cardiopulmonary abnormality. Laboratory Results WBC 9.76 10^3/uL (3.29-11.43) 07/24/24 04:47 RBC 4.39 10^6/uL (3.85-5.65) 07/24/24 04:47 Hgb 13.60 g/dL (11.27-16.99) 07/24/24 04:47 Hct 40.2 % (37-53) 07/24/24 04:47 MCV 91.6 fl (82-101) 07/24/24 04:47 MCH 31.0 pg (27-33) 07/24/24 04:47 MCHC 33.8 g/dL (30-55) 07/24/24 04:47 RDW 13.2 % (12.1-15.1) 07/24/24 04:47 Plt Count 198 10^3/cmm (157-399) 07/24/24 04:47 MPV 10.6 fL (7.4-10.4) H 07/24/24 04:47 Neut % (Auto) 59.3 % 07/24/24 04:47 Lymph % (Auto) 29.7 % 07/24/24 04:47 [place] % (Auto) 9.2 % 07/24/24 04:47 Eos % (Auto) 0.9 % 07/24/24 04:47 Baso % (Auto) 0.5 % 07/24/24 04:47 Neut # (Auto) 5.78 10^3/uL (1.8-7.7) 07/24/24 04:47 Lymph # (Auto) 2.9 10^3/uL (0.8-4.8) 07/24/24 04:47 [place] # (Auto) 0.9 10^3/uL (0.2-0.9) 07/24/24 04:47 Eos # (Auto) 0.1 10^3/uL (0.0-0.8) 07/24/24 04:47 Baso # (Auto) 0.1 10^3/uL (0.0-0.1) 07/24/24 04:47 Nucleated RBC % (auto) 0 % 07/24/24 04:47 Nucleated RBCs # 0.0 /100WBC 07/24/24 04:47 PT 13.40 SECONDS (12.1-14.9) 07/22/24 19:10 INR 0.95 (0.8-1.2) 07/22/24 19:10 APTT 64.5 SECONDS (23.9-36.7) H 07/23/24 09:10 D-Dimer 0.30 ug/mLFEU (0-0.59) 07/22/24 19:10 Sodium 141 mmol/L (136-145) 07/24/24 04:47 Potassium 4.0 mmol/L (3.5-5.1) 07/24/24 04:47 Chloride 108 mmol/L (98-107) H 07/24/24 04:47 Carbon Dioxide 23 mmol/L (22-29) 07/24/24 04:47 Anion Gap 14.0 (5-19) 07/24/24 04:47 BUN 19 mg/dL (8-23) 07/24/24 04:47 Creatinine 1.1 mg/dL (0.7-1.2) 07/24/24 04:47 GFR Calculation 67.2 mL/min (90-130) L 07/24/24 04:47 Glucose 127 mg/dL (65-115) H 07/24/24 04:47 Estimat Average Glucose 126 07/22/24 19:10 Hemoglobin A1c 6.0 % (4.0-6.0) 07/22/24 19:10 Calculated Osmolality 296 mOsm/kg (285-295) H 07/24/24 04:47 Calcium 9.1 mg/dL (8.5-10.5) 07/24/24 04:47 Magnesium 2.1 mg/dL (1.7-2.3) 07/23/24 03:08 Total Bilirubin 0.5 mg/dL (0.15-1.2) 07/22/24 19:10 AST 38 U/L (0-40) 07/22/24 19:10 ALT 54 U/L (0-41) H 07/22/24 19:10 Alkaline Phosphatase 140 U/L (40-130) H 07/22/24 19:10 Troponin T Baseline 255 ng/L (0-15) H* 07/22/24 19:10 Troponin T 120 Minute 257.3 ng/L (0-15) H 07/22/24 21:10 Delta Troponin T 2.3 ABS# (0-10) 07/22/24 21:10 Troponin T Hi Sens 6Hr 278.9 ng/L (0-15) H 07/23/24 00:36 Troponin T Hi Sens 6Hr Delta 23.9 ng/L (0-12) H* 07/23/24 00:36 C-Reactive Protein 3.0 mg/L (0.0-4.9) 07/23/24 03:08 NT-Pro-B Natriuret Pep 173 pg/mL (0-125) H 07/22/24 19:10 Total Protein 7.7 g/dL (6.6-8.7) 07/22/24 19:10 Albumin 4.7 g/dL (3.5-5.2) 07/22/24 19:10 Globulin 3.0 g/dL (1.3-4.6) 07/22/24 19:10 Vitamin B12 303 pg/mL (232-1245) 07/22/24 19:10 TSH 1.46 uIU/mL (0.27-4.20) 07/22/24 19:10 Procedures Performed Cardiac catheterization with PCI's and stent placement Vitals Last Vital Signs Temp 98.2 F 07/24/24 05:02 Pulse 54 L 07/24/24 06:00 Resp 20 H 07/24/24 05:02 BP 111/73 07/24/24 05:02 Pulse Ox 92 07/24/24 05:02 O2 Del Method Room Air 07/24/24 05:02 Discharge Plan Discharge Patient Disposition: Home Condition: Stable Prescriptions: New clopidogrel 75 mg Tablet 75 mg PO DAILY 30 Days Qty: 30 11RF aspirin 81 mg Tablet,Delayed Release (Dr/Ec) 81 mg PO DAILY 30 Days Qty: 30 11RF nitroglycerin 0.4 mg Tablet, Sublingual 0.4 mg sublingual Q5M PRN (Reason: Chest Pain) 30 Days Qty: 100 0RF rosuvastatin 40 mg capsule, sprinkle 40 mg PO BEDTIME 30 Days Qty: 30 11RF Continued probenecid 500 mg tablet 500 mg PO ONCE PRN (Reason: gout flare up ) paroxetine HCl 40 mg tablet 80 mg PO DAILY bupropion HCl 300 mg tablet extended release 24 hr 300 mg PO DAILY amlodipine 10 mg tablet 10 mg PO DAILY Discontinued atorvastatin 20 mg Tablet 20 mg PO DAILY Discharge Orders: Discharge Order (Routine); Ordered 07/24/24 Ordered By: Jatinder Stoll Referrals: Lyssa Mora MD [Primary Care Provider] - 7-10 days (Patient will need to call office on Friday to make follow up appt) Jo Sung NP [Nurse Practitioner] - 7-10 days (We have notified your physician's clinic of the need for a follow-up appointment to be scheduled. If you have not heard from them within the next 2 business days, please call them directly. ) Discharge Diet: Cardiac and Low Salt Discharge Activity: Resume usual activity and Increase activity as tolerated Patient Instructions: Clopidogrel (By mouth) (Plavix), Chest Pain (DC), Angiography (DC), Carotid Artery Stent Placement (DC), Opioid Safety Activity Restrictions/Additional Instructions: Take medications as prescribed. No strenuous activity for 3 weeks. Recommend cardiac rehabilitation. Follow-up with PCP within 1 week. Follow-up with cardiology clinic. Discharge Attestations Time Spent in Discharge Care*: greater than 30 min Quality Metrics Clinical Quality Measures [ No reported AMI, CVA or VTE this stay] Coding Level of Care Code Acute Code for [facility] Diagnoses Non-ST elevation (NSTEMI) myocardial infarction I21.4 Unstable angina I20.0 Hypercholesteremia E78.00
[2024-07-24 07:50] VITALS: BP 116/77; PULSE 56; RESP 16; O2SAT 92
[2024-07-24] MEDS: atorvastatin 40 mg Tablet 80 MG PO (08:50)
[2024-07-24] MEDS: aspirin 81 mg EC Tablet PO (08:50)
[2024-07-24] MEDS: sennosides-docusate Tablet 2 TAB PO (08:50)
[2024-07-24] MEDS: amlodipine 10 mg Tablet 5 MG PO (08:51)
[2024-07-24] MEDS: clopidogrel 75 mg Tablet PO (08:51)
[2024-07-24 09:04] VITALS: BP 116/77; PULSE 60; RESP 19; TEMP 36.7; O2SAT 94
== END 2024-07-24 12:13 | disposition home or self-care (01) | DRG 322 ==
LOC: ER 20:55 → CSU 21:20
PROVIDERS: Emergency Medicine; Internal Medicine Cardiovascular Disease; Admitting Provider Internal Medicine; Emergency Provider Emergency Medicine; PCP Family Medicine; Visit Provider Internal Medicine
PROC: 027034Z Dilation of Coronary Artery, One Artery with Drug-eluting Intraluminal Device, Percutaneous Approach (ICD-10-PCS; principal; 2024-07-23 17:30)
PROC: 027034Z Dilation of Coronary Artery, One Artery with Drug-eluting Intraluminal Device, Percutaneous Approach (ICD-10-PCS; 2024-07-23 17:30)
DX: I21.4 Non-ST elevation (NSTEMI) myocardial infarction (principal); I25.110 Atherosclerotic heart disease of native coronary artery with unstable angina pectoris; E78.00 Pure hypercholesterolemia, unspecified; I10 Essential (primary) hypertension; Z86.711 Personal history of pulmonary embolism; G47.33 Obstructive sleep apnea (adult) (pediatric); M10.9 Gout, unspecified; I45.10 Unspecified right bundle-branch block; G89.29 Other chronic pain; M54.16 Radiculopathy, lumbar region; F32.A Depression, unspecified; F43.10 Post-traumatic stress disorder, unspecified
CPT/HCPCS: 36415; 71045; 80048; 80053; 82607; 83036; 83735; 83880; 84443; 84484; 85025; 85347; 85378; 85610; 85730; 86140; 92921; 93005; 93306; 93454; 96374; 96376; 99152; 99153; 99285; C1725; C1769; C1874; C1887; C1894; C9600; J0461; J1644; J2250; J3010; J3490; J7030; J9999; Q0163; Q9967

== ENCOUNTER → 2024-08-11 13:09 | Outpatient (BNVA) | payer OTHER, SELFPAY | PROVIDERS: PCP Family Medicine; Visit Provider Nurse Practitioner Family | DX: Z09 Encounter for follow-up examination after completed treatment for conditions other than malignant neoplasm (principal) | CPT/HCPCS: 99214 ==

== ENCOUNTER → 2024-10-14 16:20 | Outpatient (BNVA) | payer OTHER, SELFPAY | PROVIDERS: PCP Family Medicine; Visit Provider Internal Medicine Cardiovascular Disease | DX: E78.00 Pure hypercholesterolemia, unspecified (principal); R52 Pain, unspecified | CPT/HCPCS: 36415; 80076; 82550 ==

== ENCOUNTER 2024-11-17 11:15 | Emergency (ER) | payer OTHER, MEDICARE, SELFPAY ==
--- NOTE | 2024-11-17 11:16 | XR_ITS ---
WS: [email or web address] Exam: XR chest 1V portable [id number] Date/Time of Exam: 11/17/2024 11:17 AM Reason For Exam: trauma Comparison 07/22/2024. Lungs are fully inflated and clear. Normal cardiomediastinal silhouette. No pleural effusions. Bony structures are intact. XR/XR chest 1V portable [id number] IMPRESSION: 1. No acute cardiopulmonary finding.
--- OUTSIDE RECORDS SUMMARY | 2024-11-17 11:22 | XMS_ITS | Clinical Summary ---
Author Organization [facility] Address [address] [place] [address] Phone Care Team Providers Care Community Youth Secretary Name Role Phone Lyssa Mora MD Primary Care Provider + [phone] Social History Tobacco Use Types Packs/Day Years Used Date Smoking Tobacco: Never Assessed Sex and Gender Information Value Date Recorded Sex Assigned at Not on file Legal Sex Male 11:59 AM CDT Gender Identity Not on file Sexual Orientation Not on file Plan of Treatment Health Maintenance Due Date Last Done Comments DIABETES ANNUAL FOOT EXAM 1977 DIABETES ANNUAL RETINAL EXAM 1977 DIABETES MICROALBUMIN ANNUAL SCREEN 1977 LDL CHOLESTEROL ANNUAL 1977 COLORECTAL SCREENING 01/16/2004 Colorectal Cancer Screening 01/16/2004 FIT-DNA Q 3 years 01/16/2004 FIT/FOBT Q 1 year 01/16/2004 Flex Sig/CT Colonography Q 5 years 01/16/2004 DIABETES HBA1C Q 6 MONTHS 07/12/2024 01/13/2024 INFLUENZA VACCINE (#1) 2024 , 05/04/2021, 01/12/2020, Additional history exists DTAP/TDAP/TD VACCINES (3 - T d or Tdap) 01/27/2033 01/27/2023, 06/23/2013 RSV VACCINE (60+ or ) (1 - 1-dose 75+ series) 2034 PNEUMOCOCCAL VACCINE 50+ YEARS Completed 01/16/2022 , 03/05/2010 ZOSTER VACCINE Completed 01/16/2022, 01/11, 03/08/2020 Insurance [facility] [address] [address] [place] [address] [employer] Care Teams Community Youth Secretary Relationship Specialty Start Date End Date Lyssa Mora MD [address] [place] [address] PCP - General Family Practice 01/01/23
[2024-11-17 11:26] VITALS: BP 104/73; PULSE 76; TEMP 36.7; O2SAT 100; BMI 27.6
--- NOTE | 2024-11-17 11:30 | ECG_ITS ---
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 Measurements Intervals [place] Rate: 75 P: -9 GA: 148 QRS: 64 QRSD: 140 T: 38 QT: 395 QTc: 444 Interpretive Statements SINUS RHYTHM RIGHT BUNDLE BRANCH BLOCK [120+ ms QRS DURATION, UPRIGHT V1, 40+ ms S IN I/aVL/V4/V5/V6] INTERPRETATION BASED ON A DEFAULT AGE OF 40 YEARS Compared to ECG 07/23/2024 02:47:02 Sinus bradycardia no longer present Electronically Signed On 11-17-2024 20:24:50 CDT by Elen Yang M.D. [id number]
--- NOTE | 2024-11-17 12:07 | CT_ITS ---
WS: [email or web address] Exam: [place] [id number] Date/Time of Exam: 11/17/2024 12:10 PM Reason For Exam: kicked in chest by horse, right sided and sternal pain DLP: 767.[address] scans at [facility] use at least one of these dose optimization techniques: automated exposure control; mA and/or kV adjustment per patient size (includes targeted exams where dose is matched to clinical indication); or iterative reconstruction. There are nondisplaced fractures involving the costal sternal junctions of the anterior fifth sixth and seventh RIGHT ribs. There is chest wall edema and bruising in the subcutaneous soft tissues along the medial RIGHT chest wall. No pulmonary contusion is noted. The lungs are fully expanded and clear. The airway is patent. There is bruising in the RIGHT breast. The thoracic aorta is normal in caliber. No pericardial effusion. Coronary artery calcifications. No lymphadenopathy in the chest. The sternum itself is intact. No other bony injury. CT/[place] [id number] IMPRESSION: 1. Nondisplaced fractures involving the costosternal junctions of the anterior RIGHT fifth sixth and seventh ribs. There is associated bruising and edema of t he subcutaneous soft tissues in the region of the RIGHT breast. No other bony i njury is noted. 2. The lungs are clear. No pulmonary contusion or intrathoracic injury. CT scan of the abdomen and pelvis without contrast. The liver, stomach, spleen and pancreas appear normal. The gallbladder is unrem arkable. The aorta is normal in caliber. Normal adrenal glands. Normal RIGHT k idney. 5 mm nonoccluding stone in the LEFT kidney. Small bowel loops are normal in caliber. No lymphadenopathy. No free air. No significant large bowel abnorm ality noted. No sign of acute appendix. No mass or lymphadenopathy in the pelvi s. The urinary bladder is intact. Prostate gland and seminal vesicles unremarka ble. Osseous structures are intact. Degenerative changes in the lower lumbar sp ine. No abdominal wall defect. IMPRESSION: 1. No acute traumatic finding in the abdomen or pelvis. 2. 5 mm nonobstructing stone in the lower pole of the LEFT kidney. There may be a second punctate stone in the upper pole the LEFT kidney.
--- NOTE | 2024-11-17 12:07 | CT_ITS ---
WS: [email or web address] Exam: CT head wo con* [id number] Date/Time of Exam: 11/17/2024 12:20 PM Reason For Exam: head injury, on plavix DLP: 1131.[address] scans at [facility] use at least one of these dose optimization techniques: automated exposure control; mA and/or kV adjustment per patient size (includes targeted exams where dose is matched to clinical indication); or iterative reconstruction. Comparison 03/23/2014. No sign of acute intracranial bleed or space-occupying mass. The ventricles and basal cisterns are normal in size. The brainstem and cerebellum appear normal. No extra-axial fluid collections. The skull is intact. The mastoids and facial sinuses are clear. Normal-appearing orbits and optic globes. Soft tissues are unremarkable. CT/CT head wo con* [id number] IMPRESSION: 1. No acute intracranial finding. Negative.
[2024-11-17] MEDS: HYDROcodone-acetaminophen 5-325 mg Tablet 1 TAB PO (13:13)
--- NOTE | 2024-11-17 13:23 | W.ED.TRAUMA ---
HPI - Trauma General: Chief Complaint: Trauma Stated Complaint: kcicked in chest by horse Time Seen by Provider: 11/17/24 11:38 History of Present Illness: 64-year-old male presents to the ED approximately one hour after being kicked in the chest by a large horse. Patient reports feeling bones cracking in his chest and experiencing significant pain in the right side of his chest. He states he was knocked to the ground and believes he may have briefly lost consciousness. Upon regaining consciousness, he reports he had difficulty breathing initially. Patient denies pain in his legs, neck, or back, though he mentions hitting his mouth when he fell. He reports feeling dizzy and shaky at presentation. Of note, patient has significant cardiac history with a myocardial infarction two months ago requiring stent placement. He is currently on plavix. Related Data Home Medications ?Medication ?Instructions ?Recorded ?Confirmed bupropion HCl 300 mg 24 hr tablet, 300 mg PO DAILY 10/10/20 10/14/24 extended release paroxetine HCl 40 mg tablet 80 mg PO DAILY 10/10/20 10/14/24 probenecid 500 mg tablet 500 mg PO ONCE PRN gout flare up 10/10/20 10/14/24 Previous Rx's ?Medication ?Instructions ?Recorded aspirin 81 mg tablet,delayed 81 mg PO DAILY 30 days #30 tabs 07/24/24 release clopidogrel 75 mg tablet 75 mg PO DAILY #30 tabs 08/11/24 rosuvastatin 40 mg sprinkle capsule 40 mg PO BEDTIME #30 caps 08/11/24 isosorbide mononitrate 30 mg 30 mg PO DAILY #90 tabs 10/14/24 tablet,extended release 24 hr morphine 15 mg immediate release 15 mg PO Q8H PRN pain #20 tabs 11/17/24 tablet Allergies Allergy/AdvReac Type Severity Reaction Status Date / Time Penicillins Allergy rash Verified 11/17/24 11:36 [facility] ED PFSH: Medical History (Updated 11/17/24 @ 13:30 by Chema Steiner MD) Unstable angina Non-ST elevation (NSTEMI) myocardial infarction Facet arthritis, degenerative, lumbar spine Lumbar radiculopathy Sacroiliac dysfunction Depression Hypertension Gout PTSD (post-traumatic stress disorder) Sleep apnea Family History Mother Cancer LUNG Social History Smoking and tobacco/nicotine status: never used tobacco/nicotine Second hand smoke exposure: No Alcohol intake: never Course Vital Signs: Vital signs: Vital Signs Temperature 98.0 F 11/17/24 11:26 Pulse Rate 76 11/17/24 11:26 Blood Pressure 104/73 11/17/24 11:26 Pulse Oximetry 100 11/17/24 11:26 Oxygen Delivery Me thod Room Air 11/17/24 11:26 MDM - Trauma Medical Decision Making ROS: Constitutional: Positive for dizziness and feeling shaky. Cardiovascular: Denies current chest pain related to cardiac issues. Respiratory: Reports initial shortness of breath after injury that has improved. Musculoskeletal: Reports chest wall pain and feeling of cracking bones. Denies leg pain. Neurological: Possible brief loss of consciousness at time of injury. Denies neck pain. HEENT: Reports hitting mouth when falling but denies current pain there. All other systems reviewed and negative. MEDICATIONS AND ALLERGIES: Medications: - Clopidogrel (Plavix) - Isosorbide - Aspirin - Rosuvastatin Allergies: No known drug allergies PAST HISTORICAL DATA: PMH: Recent myocardial infarction with stent placement 2 months ago, Hyperlipidemia PSH: Cardiac stent placement 2 months ago Social: Not documented VITAL SIGNS: Temperature: 98?F Respiratory rate: 20 Pulse: 76, repeat 65 Blood pressure: 104/73, repeat 112/84 Oxygen saturation: 100% on room air PHYSICAL EXAM: General: Alert, no acute distress HEENT: Head normocephalic and atraumatic. Mucous membranes moist. Neck: Supple, no midline tenderness. Respiratory: Clear breath sounds bilaterally. No increased work of breathing. No tachypnea. Cardiac: Regular rate and rhythm. Chest: Moderate amount of ecchymosis to the right pectoralis region and right lateral chest wall. Bruising noted to the right bicep area. Abdomen: Soft, non-distended, no rebound or guarding. Musculoskeletal: No other musculoskeletal abnormalities noted beyond chest wall trauma. Neurological: No obvious head injury or trauma noted. No focal deficits. INITIAL IMPRESSION AND PLAN: Given the history and presentation, the primary working diagnosis is chest wall trauma with possible rib fractures. Additional considerations include pulmonary contusion, pneumothorax, hemothorax, and intracranial injury given possible loss of consciousness and patient being on blood thinners. Based on this initial impression I will order: 1. Chest X-ray to evaluate for rib fractures and pulmonary pathology 2. CT scan of chest without contrast to better evaluate for rib fractures and potential intrathoracic injuries 3. CT head without contrast given possible loss of consciousness and patient being on blood thinners 4. Pain management as needed TEST INTERPRETATIONS: Chest X-ray: No acute cardiopulmonary findings. CT Chest: Nondisplaced fractures involving the costosternal junctions of the anterior right fifth, sixth, and seventh ribs. Associated bruising and edema of the subcutaneous soft tissue in the region of the right breast. No other bony injury noted. Lungs are clear. No pulmonary contusion. No retrothoracic injury noted. CT Abdomen/Pelvis: No acute traumatic findings of the abdomen or pelvis. Incidental finding of a 5mm nonobstructing stone in the lower pole of the left kidney and possible secondary punctate stone in the upper pole of the left kidney. CT Head: Negative for acute intracranial findings. FINAL IMPRESSION: Based on all the above, my clinical impression is most compatible with multiple nondisplaced rib fractures (right 5th, 6th, and 7th ribs at the costosternal junctions) due to direct trauma from horse kick. Incidental finding of asymptomatic renal calculi. The clinical picture is not currently suggestive of pneumothorax, hemothorax, pulmonary contusion, or intracranial hemorrhage. Although other conditions were also considered, they were deemed unlikely based on the clinical information available. CLINICAL DISPOSITION: The patient's current condition is stable in my estimation and the most appropriate and indicated disposition at this time is discharge home with pain management. Patient is safe for discharge as he has normal vital signs, is hemodynamically stable with 100% oxygen saturation on room air, has no evidence of intrathoracic or intracranial injury on imaging, and reports his pain can be adequately controlled at home with prescribed medications. The risks and benefits of admission versus discharge were discussed with the patient, and he expressed comfort with returning home. He will be discharged with a prescription for oral morphine for pain control after receiving 8mg IV morphine in the ED for immediate pain relief. RISK STRATIFICATION AND CLINICAL DECISION RULES APPLIED: Trauma imaging decision-making: Patient with significant mechanism of injury (horse kick to chest), on blood thinners, with possible brief loss of consciousness warranted comprehensive imaging including CT head and CT chest despite normal initial chest X-ray. This approach is consistent with trauma imaging guidelines for patients with high-risk mechanisms and anticoagulation therapy. CASE SUMMARY: 64-year-old male with recent cardiac history (ME with stent 2 months ago) on blood thinners presented after sustaining a kick to the chest by a large horse approximately one hour prior to arrival. Patient reported possible brief loss of consciousness and significant chest wall pain. Initial chest X-ray was negative, but given the mechanism of injury and anticoagulation status, CT imaging was performed revealing nondisplaced fractures of the right 5th, 6th, and 7th ribs at the costosternal junctions with associated soft tissue bruising and edema. CT head was negative for intracranial injury. Patient remained hemodynamically stable throughout ED course with normal vital signs and oxygen saturation. Pain was initially difficult to control but responded to IV morphine. After discussion of admission versus discharge options, patient preferred discharge with oral morphine for pain control. Patient was counseled on the importance of deep breathing despite pain to prevent pneumonia, and advised to return for fever, increased shortness of breath, weakness, or worsening symptoms. Lab Data I reviewed the patient's lab results. Radiology Impressions Chest X-Ray 11/17/24 11:16 IMPRESSION: 1. No acute cardiopulmonary finding. Chest/Abdomen/Pelvis CT 11/17/24 12:07 IMPRESSION: 1. Nondisplaced fractures involving the costosternal junctions of the anterior RIGHT fifth sixth and seventh ribs. There is associated bruising and edema of the subcutaneous soft tissues in the region of the RIGHT breast. No other bony injury is noted. 2. The lungs are clear. No pulmonary contusion or intrathoracic injury. CT scan of the abdomen and pelvis without contrast. The liver, stomach, spleen and pancreas appear normal. The gallbladder is unremarkable. The aorta is normal in caliber. Normal adrenal glands. Normal RIGHT kidney. 5 mm nonoccluding stone in the LEFT kidney. Small bowel loops are normal in caliber. No lymphadenopathy. No free air. No significant large bowel abnormality noted. No sign of acute appendix. No mass or lymphadenopathy in the pelvis. The urinary bladder is intact. Prostate gland and seminal vesicles unremarkable. Osseous structures are intact. Degenerative changes in the lower lumbar spine. No abdominal wall defect. IMPRESSION: 1. No acute traumatic finding in the abdomen or pelvis. 2. 5 mm nonobstructing stone in the lower pole of the LEFT kidney. There may be a second punctate stone in the upper pole the LEFT kidney. Head CT 11/17/24 12:07 IMPRESSION: 1. No acute intracranial finding. Negative. All radiology interpretation(s) finalized by discharge Discharge Plan Discharge Patient Disposition: Home Clinical Impression: Fracture, ribs, Chest wall contusion Condition: Stable Prescriptions: New morphine 15 mg tablet 15 mg PO Q8H PRN (Reason: pain) Qty: 20 0RF No Action probenecid 500 mg tablet 500 mg PO ONCE PRN (Reason: gout flare up ) paroxetine HCl 40 mg tablet 80 mg PO DAILY bupropion HCl 300 mg tablet extended release 24 hr 300 mg PO DAILY clopidogrel 75 mg tablet 75 mg PO DAILY Qty: 30 11RF rosuvastatin 40 mg capsule, sprinkle 40 mg PO BEDTIME Qty: 30 11RF isosorbide mononitrate 30 mg tablet extended release 24 hr 30 mg PO DAILY Qty: 90 3RF aspirin 81 mg Tablet,Delayed Release (Dr/Ec) 81 mg PO DAILY 30 Days Qty: 30 11RF Discharge Orders: Discharge ED (Routine); Ordered 11/17/24 Ordered By: Chema Steiner Referrals: Lyssa Mora MD [Primary Care Provider, Family Practice] Patient Instructions: Opioid Safety, Pain Management, Patient Portal & [place] Instructions Activity Restrictions/Additional Instructions: DISCHARGE INSTRUCTIONS: DIAGNOSIS: Multiple rib fractures (right 5th, 6th, and 7th ribs) MEDICATIONS: - Oral morphine as prescribed for pain - Continue all your regular medications including blood thinners unless directed otherwise by your roundhouse supervisor HOME CARE INSTRUCTIONS: 1. Rest and limit physical activity for the next 1-2 weeks 2. Apply ice to the injured area for 20 minutes at a time, several times a day to reduce pain and swelling 3. Take pain medication as prescribed 4. Practice deep breathing exercises several times per hour while awake, even though it may be painful, to prevent pneumonia 5. Sleep with your head elevated if it helps with comfort FOLLOW-UP: - Follow up with your primary care physician within 1 week - Follow up with your roundhouse supervisor as previously scheduled RETURN TO THE EMERGENCY DEPARTMENT IMMEDIATELY IF YOU EXPERIENCE: - Increased shortness of breath or difficulty breathing - Fever above 100.4?F - Increased pain not controlled by prescribed medications - Coughing up blood - Weakness or dizziness - Any new or worsening symptoms Print Language: Guyanese Coding Level of Care Code ED Ladle Repairer for Víctor Burnett
[2024-11-17] MEDS: morphine 4 mg/mL SDV 1 mL 8 MG IM (13:29)
[2024-11-17 13:43] VITALS: BP 111/77; PULSE 71; RESP 16; O2SAT 98
[2024-11-17 13:46] VITALS: BP 111/77; PULSE 71; O2SAT 100
== END 2024-11-17 13:47 | disposition home or self-care (01) ==
PROVIDERS: Emergency Provider Student in an Organized Health Care Education/Training Program; PCP Family Medicine
DX: S22.41XA Multiple fractures of ribs, right side, initial encounter for closed fracture (principal); S20.219A Contusion of unspecified front wall of thorax, initial encounter; Z79.02 Long term (current) use of antithrombotics/antiplatelets; Z79.82 Long term (current) use of aspirin; I10 Essential (primary) hypertension; W55.12XA Struck by horse, initial encounter
CPT/HCPCS: 70450; 71045; 71250; 74176; 93005; 99284; J2270; J9999

== ENCOUNTER → 2024-12-02 14:30 | Outpatient (BNVA) | payer OTHER, SELFPAY | PROVIDERS: PCP Family Medicine; Visit Provider Nurse Practitioner Family | DX: I25.110 Atherosclerotic heart disease of native coronary artery with unstable angina pectoris (principal); E78.5 Hyperlipidemia, unspecified; I10 Essential (primary) hypertension; Z86.711 Personal history of pulmonary embolism; Z79.02 Long term (current) use of antithrombotics/antiplatelets; Z79.82 Long term (current) use of aspirin; Z95.5 Presence of coronary angioplasty implant and graft; I25.2 Old myocardial infarction | CPT/HCPCS: 99213 ==

== ENCOUNTER → 2025-02-09 16:32 | Outpatient (BNVA) | payer OTHER, SELFPAY | PROVIDERS: PCP Family Medicine; Visit Provider Internal Medicine Cardiovascular Disease | DX: Z79.899 Other long term (current) drug therapy (principal); I10 Essential (primary) hypertension; E78.5 Hyperlipidemia, unspecified; E78.00 Pure hypercholesterolemia, unspecified; R06.02 Shortness of breath; R07.9 Chest pain, unspecified | CPT/HCPCS: 36415; 71046; 80053; 82550; 85007; 85027 ==

== ENCOUNTER 2025-03-03 11:30 | Outpatient (CLI) | payer OTHER, SELFPAY ==
--- NOTE | 2025-03-03 12:45 | USCV_ITS ---
Chadwick Dailey Age: 65 Gender: M : 1960 Exam Date: 03/03/2025 12:04 Ordering Phys: Marilyn Chavez MD ([email or web address]) Technologist: Exam Location: [facility] [place] Indication: cp sob BP: 140 / 751 HR: 68 Rhythm: Sinus Technical Quality: Adequate MEASUREMENTS (Male / Female) Normal Values 2D ECHO LV Diastolic Diameter PLAX 4.6 cm 4.2 - 5.9 / 3.9 - 5.3 cm IVS Diastolic Thickness 1.3 cm 0.6 - 1.0 / 0.6 - 0.9 cm IVS Systolic Thickness 1.7 cm LVPW Diastolic Thickness 1.1 cm 0.6 - 1.0 / 0.6 - 0.9 cm LVPW Systolic Thickness 2.4 cm LVOT Diameter 2.2 cm LV Ejection Fraction 2D Teich 69.5 % LV Ejection Fraction MOD 4C 52.4 % LV Ejection Fraction MOD 2C 63.0 % LV Ejection Fraction 2C AL 63.8 % LA Diameter 3.4 cm RA Systolic Volume 4C AL 37.4 ml RA Systolic Volume 4C MOD 36.9 ml LA Sys Volume AL 41.7 cm cubed LA Sys Volume Index AL 20.9 cm cubed/m squared Aorta at Sinotubular Diameter 3.1 cm IVC Diameter 1.8 cm M-MODE LA Ao Ratio MM 1.0 AV Cusp Separation MM 2.3 cm DOPPLER AV Peak Velocity 150.0 cm/s LVOT Peak Velocity 109.0 cm/s AV Area Cont Eq vti 2.7 cm squared AV Area Cont Eq pk 2.7 cm squared MV Peak Velocity 68.0 cm/s MV Area PHT 3.2 cm squared Mitral E to A Ratio 1.1 TV Peak Velocity 187.5 cm/s TR Peak Velocity 189.0 cm/s TR Peak Gradient 14.3 mmHg TV Peak E Velocity 64.0 cm/s PV Peak Velocity 95.0 cm/s FINDINGS Left Ventricle Normal left ventricular size, systolic function and wall thickness, with no regional wall motion abnormalities. Left ventricular ejection fraction is estimated at 60 %. No regional wall motion abnormalities. Grade I/IV diastolic dysfunction (abnormal relaxation filling pattern), normal to mildly elevated filling pressures. Right Ventricle Normal right ventricular size and systolic function. Right Atrium Normal right atrial size. Left Atrium Normal left atrial size. IA Septum Normal appearance of the interatrial septum. Mitral Valve Normal mitral valve structure. No mitral valve stenosis or regurgitation. Aortic Valve Moderate aortic valve calcification. No aortic valve stenosis. Trace aortic valve regurgitation. Tricuspid Valve Normal tricuspid valve structure. No tricuspid valve stenosis or regurgitation. Normal pulmonary pressure. Pulmonic Valve Normal pulmonic valve structure. No pulmonic valve stenosis or regurgitation. Pericardium No pericardial effusion. Aorta Normal diameter of the aortic root and ascending thoracic aorta. IVC Normal IVC diameter. CONCLUSIONS Normal left ventricular size, systolic function and wall thickness, with no regional wall motion abnormalities. Left ventricular ejection fraction is estimated at 60 %. No regional wall motion abnormalities. Grade I/IV diastolic dysfunction (abnormal relaxation filling pattern), normal to mildly elevated filling pressures. No significant valvular abnormalities. There is no pericardial effusion. Right atrial pressure is around 5 mm of mercury. Marilyn Chavez MD (Electronically Signed) Final Date: 03 March 2025 19:09 S
== END 2025-03-03 11:31 | disposition home or self-care (01) ==
LOC: RAD 11:31
PROVIDERS: PCP Family Medicine; Visit Provider Internal Medicine Cardiovascular Disease
DX: R06.02 Shortness of breath (principal); R07.9 Chest pain, unspecified; I51.9 Heart disease, unspecified
CPT/HCPCS: 93306

== ENCOUNTER → 2025-03-17 13:08 | Outpatient (BNVA) | payer OTHER, SELFPAY | PROVIDERS: PCP Family Medicine; Visit Provider Internal Medicine Cardiovascular Disease | DX: I25.10 Atherosclerotic heart disease of native coronary artery without angina pectoris (principal); R06.09 Other forms of dyspnea; I25.2 Old myocardial infarction; Z98.61 Coronary angioplasty status | CPT/HCPCS: 99213 ==